=== PATIENT | male | born 1970 | race Two or more races ===

== ENCOUNTER 2021-10-28 10:59 | Emergency (ER) | payer MEDICAID, OTHER ==
[~2021-10-28] VITALS: Ht 175.3 cm; Wt 93.0 kg
[2021-10-28] MEDS ORDERED: ACE3T PO (14:52)
[2021-10-28] MEDS ORDERED: MORPHINE SULFATE INJECTION 2 MG/ML SYRG IV ONE (15:00)
[2021-10-28] MEDS ORDERED: ONDANSETRON HCL 4 MG/2 ML VIAL IV ONE (15:00)
[2021-10-28 15:17] VITALS: BP 161/92
== END 2021-10-28 16:45 | disposition home or self-care (01) ==
LOC: ER 10:59 → EDBD 10:59 → ER 16:30
DX: S82.102A Unspecified fracture of upper end of left tibia, initial encounter for closed fracture (principal); I10 Essential (primary) hypertension; Z79.899 Other long term (current) drug therapy; W22.8XXA Striking against or struck by other objects, initial encounter; Y93.89 Activity, other specified; Y92.89 Other specified places as the place of occurrence of the external cause; Y99.8 Other external cause status
CPT/HCPCS: 29505; 73590; 93971; 96374; 96375; 99284; J2270; J2405

== ENCOUNTER 2021-11-07 11:01 | Emergency (ER) | payer MEDICAID ==
[~2021-11-07] VITALS: Ht 175.3 cm; Wt 99.8 kg
[~2021-11-07 11:01] MED LIST: ACE3T PO
[2021-11-07 21:28] LABS: Basophils # (auto) 0 10 ^3/uL (0-0.2); Basophils % (auto) 0.7 % (0.0-2.0); Eosinophils # (auto) 0.1 10 ^3/uL (0-0.8); Eosinophils % (auto) 1.2 % (0.0-7.0); Hematocrit 42.3 % (41.0-53.0); Hemoglobin 13.8 g/dL (13.5-17.5); Lymphocytes # (auto) 2.1 10 ^3/uL (0.4-5.4); Mean Corpuscular Hemoglobin 26.1 pg (28.0-32.0); Mean Corpuscular Hgb Conc. 32.7 g/dL (32.0-36.0); Mean Corpuscular Volume 79.7 fL (80.0-100.0); Monocytes # (auto) 0.7 10 ^3/uL (0-1.3); Monocytes % (auto) 9.9 % (0.0-12.0); Neutrophils # (auto) 3.8 10 ^3/uL (1.6-8.6); Neutrophils % (auto) 57.2 % (37.0-80.0); Red Cell Distribution Width 14.1 % (11.8-14.3); White Blood Cell 6.7 10^3/uL (4.4-10.8)
[2021-11-07 21:43] LABS: INR 1.04 (0.9-1.15)
[2021-11-07 21:46] LABS: Albumin 3.2 g/dL (3.4-5.0); Magnesium 2.5 mg/dL (1.6-2.6); Potassium 4.5 mmol/L (3.5-5.1)
[2021-11-07 21:48] LABS: BUN/Creatinine Ratio 17.5
[2021-11-07 21:53] LABS: Bilirubin, Total 0.6 mg/dL (0.2-1.0); Total Protein 6.7 g/dL (6.4-8.2)
[2021-11-08 06:00] VITALS: BP 106/72
== END 2021-11-08 03:20 | disposition home or self-care (01) ==
LOC: EDBD 11:01 → ER 11:01
DX: F15.10 Other stimulant abuse, uncomplicated (principal); M25.552 Pain in left hip; M79.662 Pain in left lower leg; I10 Essential (primary) hypertension
CPT/HCPCS: 36415; 71045; 72170; 80053; 80320; 82550; 83735; 83880; 84484; 85025; 85610; 85730; 93005; 93971